=== PATIENT | female | born 1975 | race Caucasian/White ===

== ENCOUNTER → 2017-01-30 | Outpatient (CLI) | payer OTHER | END | disposition home or self-care (01) | LOC: RAD.S 01-11 13:30 | DX: E04.1 Nontoxic single thyroid nodule (principal) ==

== ENCOUNTER → 2017-03-14 | Outpatient (CLI) | payer OTHER | END | disposition home or self-care (01) | LOC: RAD.S 13:47 | PROC: 0GBH3ZX Excision of Right Thyroid Gland Lobe, Percutaneous Approach, Diagnostic (ICD-10-PCS; principal; 2017-03-14) | DX: E04.1 Nontoxic single thyroid nodule (principal) ==

== ENCOUNTER → 2017-08-15 | Outpatient (CLI) | payer OTHER | END | disposition home or self-care (01) | LOC: RAD.S 14:30 | DX: E04.2 Nontoxic multinodular goiter (principal) ==